=== PATIENT | male | born 1950 | race Caucasian/White ===

== ENCOUNTER → 2024-08-14 09:00 | Outpatient (BNVA) | payer OTHER, SELFPAY | PROVIDERS: Referring Provider Nurse Practitioner Family; Visit Provider Specialist | DX: I63.9 Cerebral infarction, unspecified (principal); G96.08 Other cranial cerebrospinal fluid leak; I67.1 Cerebral aneurysm, nonruptured; R26.9 Unspecified abnormalities of gait and mobility; R29.818 Other symptoms and signs involving the nervous system; R29.6 Repeated falls; Z79.01 Long term (current) use of anticoagulants | CPT/HCPCS: 99205 ==

== ENCOUNTER 2024-08-22 10:33 | Outpatient (CLI) | payer OTHER, SELFPAY ==
--- NOTE | 2024-08-22 10:45 | MR_ITS ---
WS: [id number] MRI BRAIN WITHOUT CONTRAST HISTORY: I63.9 - Cerebral infarction, unspecified, history of bilateral subdural hygromas. COMPARISON: None available. TECHNIQUE: Diffusion imaging, multiplanar T1, T2 and FLAIR imaging obtained. No acute infarct. Slight increased diffusion change in the LEFT temporal lobe cortex at believe is pr obably artifact. There is no T2 or FLAIR signal hyperintensity. Moderate atrophy. Greatest atrophy involving the frontal and temporal lobes. Mild cerebellar atrophy. No cerebellar infarct. No signal abnormality within the wilmer. Mild periventricular T2 and FLAIR signal hyperintensities. There are a few scattered subcortical whit e matter hyperintensities also. CSF collection in the anterior LEFT middle cranial fossa consistent w ith an arachnoid cyst. Additional LEFT posterior fossa arachnoid cyst. There are a few very tiny hemo siderin depositions in the RIGHT cerebellum. Ventricles and extra-axial spaces are mildly dilated based on atrophy. There is a complex crescentic shaped fluid collection along the LEFT cerebrum. Centered greater over the frontal lobe with a diamet er of 6.4 mm. This is mixed signal on the FLAIR and T1 sequences. Very minimal mass effect upon the b rain. No midline shift. No hygroma or extra-axial collection noted on the RIGHT. No inferior displacement of cerebellar tonsils. The sella turcica and pituitary gland are unremarkabl e. Dural venous sinuses and [place] of [place] demonstrate no abnormality on this unenhanced studies. Paranasal sinuses: Clear. Mastoid air cells: Normal. Calvarium and scalp: Intact. MR/MR head wo con* [id number] IMPRESSION: 1. Complex LEFT subdural hematoma measures 6.4 mm at its maximum. Mixed signal within the subdural collection. Chronic with superimposed subacute blood produ cts is likely. By history patient's had prior CTs describing bilateral subdural hygromas. Comparison with these prior imaging studies would be beneficial to e valuate for any progression in size. 2. No RIGHT subdural hematoma identified. 3. Moderate cerebral atrophy. 4. LEFT subarachnoid cyst in the middle cranial fossa. There is an additional subarachnoid cyst in the LEFT posterior fossa. 5. Tiny hemosiderin depositions in the RIGHT cerebellum.
--- NOTE | 2024-08-22 11:30 | MR_ITS ---
WS: [id number] MRA ANGIOGRAPHY [place] HISTORY: I63.9 - Cerebral infarction, unspecified, history of a prior treated aneurysm. The location of the aneurysm was not available from the history. COMPARISON: None available. TECHNIQUE: 3-D MR angiography is performed of the [place]. All images are reviewed including source images. Mildly dominant distal RIGHT vertebral artery. RIGHT vertebral artery is tortuous and crosses to the LEFT of midline. Small caliber but patent LEFT vertebral artery. Normal size basilar artery. Small ca liber and irregular LEFT P1 and P2 segments. More robust RIGHT posterior cerebral artery. Dominant an d well visualized LEFT posterior communicating artery. RIGHT posterior communicating artery is diffic ult to visualized and hypoplastic. Intracranial internal carotid arteries are normal course and caliber. Supraclinoid carotid arteries w ell visualized. Middle cerebral arteries are both patent. No aneurysms are identified. Normal size RI GHT A1 segment. Small caliber LEFT A1 segment. A2 segments are normal. No cerebral artery aneurysm is identified on this examination. Complex LEFT subdural collection is identified. Maximum diameter 6.8 mm. This will be further describ ed by MRI brain also performed on the same day. MR/MR angio head wo con [id number] IMPRESSION: 1. No cerebral artery aneurysm identified. 2. Small caliber, irregular LEFT P1 and P2 segments. 3. Diffuse small caliber LEFT A1 segment. 4. Middle cerebral arteries without significant atherosclerotic disease.
== END 2024-08-22 10:34 | disposition home or self-care (01) ==
LOC: RAD 10:34
PROVIDERS: Visit Provider Specialist
DX: I63.9 Cerebral infarction, unspecified (principal); G96.08 Other cranial cerebrospinal fluid leak; I67.1 Cerebral aneurysm, nonruptured; R94.02 Abnormal brain scan; G31.9 Degenerative disease of nervous system, unspecified; G93.0 Cerebral cysts
CPT/HCPCS: 70544; 70551

== ENCOUNTER 2024-09-09 10:39 | Outpatient (CLI) | payer OTHER, SELFPAY ==
--- NOTE | 2024-09-09 10:00 | CT_ITS ---
WS: [id number] CT HEAD TECHNIQUE: Noncontrast CT of the head obtained from the skullbase to the vertex. CLINICAL INFORMATION: G96.08 - Other cranial cerebrospinal fluid leak COMPARISON: None. DLP: 1068.[address] scans at [facility] use at least one of these dose optimization techniques: automated e xposure control; mA and/or kV adjustment per patient size (includes targeted exams where dose is matc hed to clinical indication); or iterative reconstruction. FINDINGS: Small amount mixed attenuation LEFT frontal subdural blood products measuring 4.7 mm in maximum trans verse dimension. This appears stable 2 slightly improved compared to previous. No significant progres nadira. Recommend continued surveillance. Ventricular system and basal cisterns are patent. Moderate small vessel changes with moderate parench ymal volume loss. Moderate to advanced atrophy in the cerebellar vermis and cerebellum. Small chronic lacunar infarct RIGHT caudate. Chronic lacunar infarct in the dorsal LEFT midbrain unchanged. Tiny c hronic lacunar infarct LEFT thalamus. Paranasal sinuses and mastoid air cells are well aerated. .Normal visualized soft tissues. Stable LEF T middle cranial fossa and LEFT CP angle arachnoid cyst. CT/CT head wo con* [id number] IMPRESSION: 1. Small amount of residual increased/mixed attenuation LEFT frontal subdural blood products measuring 4.7 mm in maximum transverse dimension. This appears s table to slightly improved considering differences in technique. No significant progression. Recommend continued surveillance. 2. No significant mass effect. 3. Moderate small vessel changes. Moderate parenchymal volume loss. 4. Vascular calcification. 5. Moderate to advanced atrophy in the cerebellum and cerebellar vermis. 6. Small chronic lacunar infarct RIGHT caudate.
--- NOTE | 2024-09-09 10:41 | MR_ITS ---
WS: [email or web address] MRA CAROTID WITHOUT AND WITH GADOLINIUM ENHANCEMENT TECHNIQUE: Axial 2-D TOF and gadolinium bolus images obtained with axial images and axial, sagittal, and coronal 2-D reformatted images. CLINICAL INFORMATION: I63.9 - Cerebral infarction, unspecified COMPARISON: None. FINDINGS: RIGHT: RIGHT common carotid artery is patent. No significant RIGHT ICA stenosis. RIGHT ICA is patent to the skull base. LEFT: LEFT common carotid artery is patent. No significant LEFT ICA stenosis. LEFT ICA is patent to t he skull base. RIGHT dominant vertebral artery. Smaller but patent LEFT vertebral artery. Vertebral arteries are pat ent to the basilar junction. LEFT vertebral artery partially ends in PICA. Proximal subclavian arteries are patent. MR/MR angio neck w con* [id number] IMPRESSION: 1. No significant cervical ICA stenosis. 2. RIGHT dominant vertebral artery. Smaller but patent LEFT vertebral artery w hich partially ends in PICA. 3. Proximal subclavian arteries are patent.
--- NOTE | 2024-09-09 10:41 | MR_ITS ---
WS: [email or web address] MRI CERVICAL SPINE NONCONTRAST TECHNIQUE: Sagittal T1, T2 and STIR imaging. Axial T2, gradient, and fiesta imaging. CLINICAL INFORMATION: I63.9 - Cerebral infarction, unspecified COMPARISON: None. FINDINGS: Straightening of the normal cervical lordosis. Cord signal appears normal. Mild spondylitic changes. Disc bulging worse at C3-C4 C4-C5 and C5-C6. Disc space narrowing worse at C4-C5 and C5-C6. C2-C3: Mild facet arthropathy. Mild bilateral bony foraminal narrowing. C3-C4: Shallow central disc osteophyte protrusion with slight indentation cervical cord. Mild central canal stenosis. Moderate RIGHT greater than LEFT bony foraminal narrowing. Mild facet arthropathy. C4-C5: Disc osteophyte complex with endplate ridging. Moderate LEFT and mild RIGHT bony foraminal na rrowing. Spinal canal is patent. Mild facet arthropathy. C5-C6: Disc osteophyte complex with mild central canal stenosis. Severe LEFT and moderate RIGHT bony foraminal narrowing. Moderate facet arthropathy. C6-C7: Disc osteophyte complex with endplate ridging. Spinal canal is patent. Severe bilateral bony f oraminal narrowing. Mild facet arthropathy. C7-T1: Mild RIGHT and no significant LEFT foraminal narrowing. Spinal canal is patent. Visualized brain stem structures: Normal. Prevertebral soft tissues: Normal. MR/MR cervical spin wo con* [id number] IMPRESSION: 1. Straightening of the normal cervical lordosis. 2. Mild central canal stenosis C3-C4 and C5-C6 with disc osteophyte complexes. 3. Moderate to severe bony foraminal narrowing worse at bilateral C5-6 worse i n the LEFT and bilateral C6-7. 4. Moderate RIGHT C3-4 and LEFT C4-5 bony foraminal narrowing
[2024-09-09] MEDS: gadobenate dimeglumine 20 mL vial 13 ML IV (12:44)
== END 2024-09-09 10:40 | disposition home or self-care (01) ==
LOC: RAD 10:40
PROVIDERS: PCP Family Medicine; Visit Provider Specialist
DX: G96.08 Other cranial cerebrospinal fluid leak (principal); I63.9 Cerebral infarction, unspecified; I67.1 Cerebral aneurysm, nonruptured; M99.61 Osseous and subluxation stenosis of intervertebral foramina of cervical region; M25.78 Osteophyte, vertebrae; I67.89 Other cerebrovascular disease; G31.89 Other specified degenerative diseases of nervous system
CPT/HCPCS: 70450; 70548; 72141

== ENCOUNTER → 2024-11-14 08:13 | Outpatient (BNVA) | payer OTHER, SELFPAY | PROVIDERS: PCP Family Medicine; Visit Provider Specialist | DX: G96.08 Other cranial cerebrospinal fluid leak (principal); I67.1 Cerebral aneurysm, nonruptured; R26.9 Unspecified abnormalities of gait and mobility; X58.XXXS Exposure to other specified factors, sequela | CPT/HCPCS: 99215 ==

== ENCOUNTER → 2025-03-13 12:11 | Outpatient (BNVA) | payer OTHER, SELFPAY | PROVIDERS: PCP Family Medicine; Visit Provider Specialist | DX: G96.08 Other cranial cerebrospinal fluid leak (principal); R26.9 Unspecified abnormalities of gait and mobility; S06.5X0D Traumatic subdural hemorrhage without loss of consciousness, subsequent encounter; X58.XXXD Exposure to other specified factors, subsequent encounter | CPT/HCPCS: 99213 ==